=== PATIENT | female | born 1985 ===

== ENCOUNTER 2019-09-13 19:52 | Emergency (ER) | payer BC, OTHER ==
--- NOTE | 2019-09-13 23:16 | ED ---
Lower Extremity - HPI Summary HPI Summary: Pt is a 34 y/o F presenting to the ED for bilateral LE numbness and paresthesia , more on the left than right. Pt reports that the numbness and paresthesia first began while sitting in a car and has worsened since initial onset. Pt reports position changes do not alleviate or worsen her symptoms. Pt states that the bilateral LE feel heavy which began on 09/13/19. After standing up twice, pt felt she would lose her balance and her bilateral LE felt hot. Pt states the numbness is improved at the present time. Pt reports walking before being seen improved the numbness. Pt admits a ALTMAN on 09/12/19 that presented with visual disturbances that have since resolved. Pt denies similar ALTMAN in the past. Pt also has a sore throat and neck pain a few days ago that has resolved and which pt attributes to doing yard work. Pt denies decreased appetite, fever , neck pain at the present time, chest pain, unsteady gait, back tenderness, or weakness in the bilateral LE. Pt took ibuprofen without relief. Pt reports she was asymptomatic in the morning of 09/13/19. 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 Pt currently has her menstrual period that began 2 days ago. Pt takes Vitamin D supplements. Pt is a daycare provider. - History of Current Complaint Chief Complaint: EDExtremityLower Stated Complaint: LEG NUMBNESS PER PT Time Seen by Provider: 09/13/19 22:57 Hx Obtained From: Patient Hx Last Menstrual Period: 11/21/16 Onset of Pain: Hours Onset/Duration: Still Present Severity Initially: Mild Severity Currently: Mild Pain Intensity: 0 Pain Scale Used: 0-10 Numeric Timing: Constant, Lasting Hours Location: Is Discrete @ - Bilateral LE Associated Signs And Symptoms: Positive: Weakness - Bilateral LE, Other Aggravating Factor(s): Nothing Alleviating Factor(s): Nothing - Allergies/Home Medications Allergies/Adverse Reactions: Allergies Allergy/AdvReac Type Severity Reaction Status Date / Time codeine Allergy Hives Verified 09/13/19 20:10 PMH/Surg Hx/FS Hx/Imm Hx Previously Healthy: Yes Endocrine/Hematology History: Denies: Hx Diabetes Cardiovascular History: Denies: Hx Hypertension Sensory History: Denies: Hx Legally Blind, Hx Deafness Opthamlomology History: Denies: Hx Legally Blind EENT History: Denies: Hx Deafness Neurological History: Reports: Other Neuro Impairments/Disorders - Hx Jones's palsy - Surgical History Surgical History: None Surgery Procedure, Year, and Place: None Infectious Disease History: No Infectious Disease History: Denies: History Other Infectious Disease, Traveled Outside the [place] in Last 30 Days - Family History Known Family History: Negative: Hypertension, Diabetes - Social History Alcohol Use: None Hx Substance Use: No Substance Use Type: Reports: None Hx Tobacco Use: No Smoking Status (MU): Never Smoked Tobacco Review of Systems Positive: Other - Negative decreased appetite. Negative: Fever Positive: Other - Positive visual disturbance with ALTMAN, resolved Positive: Sore Throat Negative: Chest Pain Positive: Other - Negative unsteady gait or back tenderness. Negative: Arthralgia - Neck, resolved Positive: Headache - Resolved, Paresthesia, Numbness. Negative: Weakness - Bilateral LE All Other Systems Reviewed And Are Negative: Yes Physical Exam - Summary Physical Exam Summary: Appearance: Well-appearing, Well-nourished, lying in bed comfortably Skin: Warm, dry, no obvious rash Eyes: sclera anicteric, no conjunctival pallor ENT: mucous membranes moist, pharynx appears normal Neck: Supple, nontender Respiratory: Clear to auscultation, no signs of respiratory distress Cardiovascular: Normal S1, S2. No murmurs. Normal distal pulses in tibial and radial bilaterally. Abdomen: Soft, nontender, normal active bowel sounds present Musculoskeletal: Normal, Strength/ROM Intact Neurological: A&Ox3, awake and alert, mentation is normal, speech is fluent and appropriate. Slight drift in right arm not reproducible with hand recruiting associate, flexion or extension of the arms. Psychiatric: affect is normal, does not appear anxious or depressed Triage Information Reviewed: Yes Vital Signs On Initial Exam: Initial Vitals Temp Pulse Resp BP Pulse Ox 99 F 80 18 130/90 98 09/13/19 20:09 09/13/19 20:09 09/13/19 20:09 09/13/19 20:09 09/13/19 20:09 Vital Signs Reviewed: Yes Procedures - Sedation Patient Received Moderate/Deep Sedation with Procedure: No Diagnostics - Vital Signs Vital Signs Temp Pulse Resp BP Pulse Ox 09/13/19 20:09 99 F 80 18 130/90 98 - Laboratory Result Diagrams: 09/14/19 00:00 09/14/19 00:00 Lab Statement: Any lab studies that have been ordered have been reviewed, and results considered in the medical decision making process. Lower Extremity Course/Dx - Course Course Of Treatment: Pt is a 34 y/o F presenting to the ED for bilateral LE numbness and paresthesia, more on the left than right. Pt reports that the numbness and paresthesia first began while sitting in a car and has worsened since initial onset. Pt reports position changes do not alleviate or worsen her symptoms. Pt states that the bilateral LE feel heavy which began on 09/13/19. After standing up twice, pt felt she would lose her balance and her bilateral LE felt hot. Pt states the numbness is improved at the present time. Pt reports walking before being seen improved the numbness. Pt admits a ALTMAN on 09/12 that presented with visual disturbances that have since resolved. Pt denies similar ALTMAN in the past. Pt also has a sore throat and neck pain a few days ago that has resolved and which pt attributes to doing yard work. Pt denies decreased appetite, fever, neck pain at the present time, chest pain, unsteady gait, back tenderness, or weakness in the bilateral LE. Pt took ibuprofen without relief. Pt reports she was asymptomatic in the morning of 09/13/19. 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 Pt currently has her menstrual period that began 2 days ago. On exam, slight drift in right arm not reproducible with hand recruiting associate, flexion or extension of the arms. Laboratory abnormal findings: BUN/Creatinine ratio 20.8 , total bilirubin 1.20, total protein 6.1, globulin 1.8, urine blood 1+, urine squamous epith cells present, amorphous crystals present. Pt will be discharged home with a diagnosis of paresthesia. Follow up with a neurologist. - Diagnoses Provider Diagnoses: Paresthesia Discharge ED - Sign-Out/Discharge Documenting (check all that apply): Patient Departure - Discharge - Discharge Plan Condition: Good Disposition: HOME Patient Education Materials: Paresthesia (ED) Referrals: [facility] [Outside] Art Espinoza MD [Medical Doctor] - Additional Instructions: Your symptoms are suggestive of a problem with the nerves in the legs. This can be caused by many things. The basic screening lab work we did tonight looks ok, but we cannot make a definitive diagnosis right now. Since it seems to be improving, it's ok to let you go home tonight but if it recurs, especially if you develop other symptoms, you should see an automobile sales consultant or neurologist. - Billing Disposition and Condition Condition: GOOD Disposition: Home - Attestation Statements Document Initiated by Jose A: Yes Documenting Scribe: Johanna Posada Provider For Whom Jose A is Documenting (Include Credential): Reagan Galdamez MD Scribe Attestation: I, Johanna Posada, scribed for Reagan Galdamez MD on 10/06/19 at 0529. Scribe Documentation Reviewed: Yes Provider Attestation: The documentation as recorded by the Johanna schultz accurately reflects the service I personally performed and the decisions made by me, Reagan Galdamez MD Status of Scribe Document: Viewed
[2019-09-14 00:22] LABS: ABS Eosinophils 0.2 10^3/ul (0-0.6); ABS Lymphocytes 2.3 10^3/ul (1.0-4.8); ABS Monocytes 0.5 10^3/ul (0-0.8); ABS Neutrophils 3.1 10^3/ul (1.5-7.7); Eosinophil % 3.4 %; Hematocrit 36 % (35-47); Lymphocyte % 37.7 %; Mean Corpuscular HGB Conc 34 g/dL (31-36); Mean Corpuscular Hemoglobin 29 pg (27-31); Mean Corpuscular Volume 87 fL (80-97); Mean Platelet Volume 8.3 fL (7.4-10.4); Platelet Count 186 10^3/uL (150-450); Red Blood Count 4.11 10^6 /uL (3.70-4.87); Red Cell Distribution Width 13 % (10-15); White Blood Count 6.1 10^3/uL (3.5-10.8)
[2019-09-14 00:24] LABS: ALT 14 U/L (7-52); AST 14 U/L (13-39); Albumin 4.3 g/dL (3.2-5.2); Albumin/Globulin Ratio 2.4 (1-3); Alkaline Phosphatase 35 U/L (34-104); Anion Gap 6 mmol/L (2-11); BUN/Creatinine Ratio 20.8 (8-20); Blood Urea Nitrogen 16 mg/dL (6-24); CO2 Carbon Dioxide 25 mmol/L (22-32); Calcium 9.9 mg/dL (8.6-10.3); Chloride 109 mmol/L (101-111); EGFR African American 103.2 (>60); EGFR Non-African American 85.3 (>60); Globulin 1.8 g/dL (2-4); Glucose 94 mg/dL (70-100); Magnesium 2.1 mg/dL (1.9-2.7); Potassium 3.8 mmol/L (3.5-5.0); Sodium 140 mmol/L (135-145); Total Protein 6.1 g/dL (6.4-8.9)
[2019-09-14 00:30] LABS: HCG Pregnancy < 0.60 mIU/mL
[2019-09-14 02:11] LABS: Urine Appearance Cloudy; Urine Bacteria Absent (Absent); Urine Bilirubin Negative (Negative); Urine Blood 1+ (Negative); Urine Color Yellow; Urine Glucose Negative (Negative); Urine Ketones Negative (Negative); Urine Nitrite Negative (Negative); Urine Protein Negative (Negative); Urine Red Blood Cell Absent (Absent); Urine Specific Gravity 1.015 (1.010-1.030); Urine Squamous Epithelial Cell Present (Absent); Urine Urobilinogen Negative (Negative); Urine White Blood Cell Absent (Absent)
[2019-09-14 02:45] VITALS: BP 121/81
== END 2019-09-14 02:30 | disposition home or self-care (01) ==
LOC: ED 19:52
DX: R20.0 Anesthesia of skin (principal); J02.9 Acute pharyngitis, unspecified; R51 Headache
CPT/HCPCS: 36415; 80053; 81003; 81015; 83735; 84702; 85025; 99282